=== PATIENT | female | born 1985 | race Caucasian/White ===

== ENCOUNTER 2016-04-30 17:49 | Emergency (ER) | payer SELFPAY | END 2016-04-30 20:07 | disposition home or self-care (01) | LOC: FER 17:49 | DX: K05.219 Aggressive periodontitis, localized, unspecified severity (principal); K08.89 Other specified disorders of teeth and supporting structures; Z88.2 Allergy status to sulfonamides ==

== ENCOUNTER 2016-05-06 14:20 | Emergency (ER) | payer SELFPAY | END 2016-05-06 15:57 | disposition home or self-care (01) | LOC: FER 14:20 | DX: K02.9 Dental caries, unspecified (principal); Z88.2 Allergy status to sulfonamides; Z88.6 Allergy status to analgesic agent | CPT/HCPCS: 87450; 99283 ==